=== PATIENT | male | born 1935 | race Caucasian/White ===

== ENCOUNTER → 2018-12-12 | Outpatient (CLI) | payer MEDICARE ==
[~2018-12-12] MED LIST: ASCO500 PO; ASPI325EC PO; BIOTIN PO; CALCIUM PO; COPPER PO; FISH OIL OMEGA1 EAC2 PO; FOLI400 PO; INSTAFLEX PO; MAGNESIUM PO; MOVE FREE JOIN1 EACH PO; PERSERVISION PO; Percocet 5-3251 EACH PO; RAMI5 PO; TOCO1000 PO; VITAMIN B122500 MC1 PO; ZINC15 PO
[2018-12-12 14:18] LABS: Stool Occult Bld Immuno 1 Negative (NEGATIVE); Stool Occult Bld Immuno 2 Negative (NEGATIVE)
== END | disposition home or self-care (01) ==
LOC: LAB EV 07:15
PROVIDERS: Internal Medicine Gastroenterology
DX: K57.30 Diverticulosis of large intestine without perforation or abscess without bleeding (principal); Z86.010 Personal history of colon polyps
CPT/HCPCS: 82274

== ENCOUNTER 2022-09-13 05:54 | Day surgery (SDC) | payer MEDICARE ==
[~2022-09-13] VITALS: Ht 172.7 cm; Wt 88.0 kg
--- NOTE | 2022-09-13 06:33 | NUR ---
into sds admission started npo wieght height etcetera
--- NOTE | 2022-09-13 10:34 | NUR ---
PATIENT CAME BACK FROM PACU TODAY AT 1030. POD 0 RIGHT TKA PATIENT IS A&OX4. VS ARE WNL AND IS ON RA. PATIENT DID HAVE A SPINAL DURING PROCEDURE AND STILL REPORTS NUMBNESS FROM THE HIPS DOWN AT THIS TIME. DUE TO THE SPINAL DURING PROCEDURE HE IS UNABLE TO WIGGLE TOES AT THIS TIME BUT PEDAL PULSES ARE STRONG WITH NORMAL CAP REFILL. HE HAS FLY WRAP AND GAUZE ON THE RIGHT KNEE WITH POLAR PACK IN PLACE THAT IS C/D/I. HE IS TOLERATING SMALL AMOUNTS OF PO INTAKE AT THIS TIME. PATIENT IS LAYING IN BED WITH CALL LIGHT IN REACH.
--- NOTE | 2022-09-13 17:36 | NUR ---
SHIFT SUMMARY: POD 0 RIGHT TKA PATIENT IS A&OX4. VS ARE WNL AND IS ON RA. PATIENT REPORTS A 2/10 PAIN ON HIS RIGHT KNEE AND HAS BEEN GIVEN IV TORADOL AND PO TYLENOL SO FAR AND HE STATES "IT IS BETTER". DENIES NUMBNESS OR TINGLING IN ALL EXTREMITIES AND CAN MOVE FINGERS AND TOES WHEN ASKED. HE IS A SBA WITH FWW AND GAIT BELT WITH AMBULATION. PATIENT DID WORK WITH PT ALREADY TODAY WELL. PATIENT IS SITTING IN THE RECLINER WITH FEET UP EATING DINNER. CALL LIGHT IS WITHIN REACH. CALLS APPROPRIATELY.
[2022-09-14 04:30] LABS: BASOPHILS ABSOLUTE AUTO 0.06 K/mm3 (0.00-0.23); BASOPHILS PERCENT AUTO 1 % (0-2); EOSINOPHILS ABSOLUTE AUTO 0.17 K/mm3 (0.00-0.68); EOSINOPHILS PERCENT AUTO 2 % (0-6); Hematocrit 37.4 % (37.0-53.0); Hemoglobin 12.6 g/dL (13.5-17.5); IMMATURE GRAN ABSOLUTE AUTO 0.02 K/mm3 (0.00-0.10); IMMATURE GRAN PERCENT AUTO 0 % (0-1); LYMPHOCYTES ABSOLUTE AUTO 0.73 K/mm3 (0.84-5.20); LYMPHOCYTES PERCENT AUTO 9 % (21-46); MONOCYTES ABSOLUTE AUTO 1.01 K/mm3 (0.16-1.47); MONOCYTES PERCENT AUTO 12 % (4-13); Mean Corpuscular HGB 29.6 pg (26.0-34.0); Mean Corpuscular HGB Conc 33.7 g/dL (31.5-36.5); Mean Corpuscular Volume 88 fL (80-100); Mean Platelet Volume 10.5 fL (9.1-12.4); NEUTROPHILS ABSOLUTE AUTO 6.43 K/mm3 (1.96-9.15); NEUTROPHILS PERCENT AUTO 76 % (41-73); Platelet Count 176 K/mm3 (150-400); RDW Coefficient Variation 14.5 % (11.7-14.2); RDW Standard Deviation 46.6 fL (35.1-46.3); Red Blood Cell Count 4.25 M/mm3 (4.30-5.90); White Blood Cell Count 8.42 K/mm3 (4.00-11.30)
--- NOTE | 2022-09-14 04:43 | NUR ---
SHIFT SUMMARY PT POD 0 RIGHT TOTAL KNEE, HE HAS DONE WELL OVERNIGHT, PAIN HAS BEEN MINIMAL AND WELL CONTROLLED PER EMAR. PT HAS BEEN UP AND AMBULATING AND HAS VOIDED. TOLERATING PO INTAKE. DRESSING IS INTACT TO RIGHT KNEE, HE DENIES N/T AND IS ABLE TO WIGGLE TOES. NO ACUTE CHANGES OVERNIGHT, BED IN LOWEST POSITION, CALL LIGHT WITHIN REACH.
[2022-09-14 04:54] LABS: Bun/Creatinine Ratio 24.7 (12.0-20.0); Calcium, Blood 8.5 mg/dL (8.5-10.1); Creatinine, Blood 0.89 mg/dL (0.60-1.20)
[2022-09-14] MEDS ORDERED: ASPI81CH PO (09:54)
[2022-09-14] MEDS ORDERED: OXAYDO5 M1 PO (09:55)
[2022-09-14] MEDS ORDERED: PROM25 PO (09:56)
--- NOTE | 2022-09-14 10:08 | NUR ---
DISCHARGED REVIEWED DC INSTRUCTIONS WITH PATIENT; PT DISTRACTED, EAGER TO LEAVE. VERBALIZED UNDERSTANDING. IV DC'D, CATHETER INTACT. PT DECLINED HAVING PHENERGAN PRESCRIPTION CALLED INTO PHARMACY, STATED DID NOT NEED. PROVIDED DRESSING CHANGES. PT LEFT UNIT W/POLAR PACK, DC INSTRUCTIONS, DRESSING CHANGES, AND PERSONAL POSSESSIONS IN HAND TO RIDE WAITING OUTSIDE.
== END 2022-09-14 10:06 | disposition home or self-care (01) ==
LOC: ORSCMMR 05:54 → ORD 07:30 → SURS 10:16 → ORSCMMR 09-14 10:06
PROVIDERS: Orthopaedic Surgery
PROC: 0SRC0J9 Replacement of Right Knee Joint with Synthetic Substitute, Cemented, Open Approach (ICD-10-PCS; principal; 2022-09-13 07:30)
DX: M17.11 Unilateral primary osteoarthritis, right knee (principal); I10 Essential (primary) hypertension; Z79.899 Other long term (current) drug therapy
CPT/HCPCS: 36415; 73560-RT; 80048; 83735; 85025; 97110; 97116; 97162; A9270; C1713; C1776; J0171; J0690; J0735; J1885; J2370; J2704; J2795; J3010; J3370; J7050; J7120

== ENCOUNTER 2023-03-29 11:44 | Day surgery (SDC) | payer MEDICARE ==
[~2023-03-29] VITALS: Ht 180.3 cm; Wt 86.9 kg
[~2023-03-29 11:44] MED LIST changes: +ASPI81CH PO; +OXAYDO5 M1 PO; +PROM25 PO
[2023-03-29 13:54] VITALS: BP 120/74
--- NOTE | 2023-03-29 13:55 | NUR ---
03/29/23 1355 Zonia Berrios IV REMOVED AT 1355. PT TOLERATED WELL AND WITH NO ISSUES.
== END 2023-03-29 14:05 | disposition home or self-care (01) ==
LOC: ORSCSDS 11:44
PROVIDERS: Ophthalmology
PROC: 08RJ3JZ Replacement of Right Lens with Synthetic Substitute, Percutaneous Approach (ICD-10-PCS; principal; 2023-03-29 13:00)
DX: H25.11 Age-related nuclear cataract, right eye (principal); I10 Essential (primary) hypertension; H52.201 Unspecified astigmatism, right eye; Z79.899 Other long term (current) drug therapy
CPT/HCPCS: J2250; J3010; J3301; J7040; V2632

== ENCOUNTER 2023-04-05 12:09 | Day surgery (SDC) | payer MEDICARE ==
[~2023-04-05] VITALS: Ht 180.3 cm; Wt 86.3 kg
--- NOTE | 2023-04-05 12:26 | NUR ---
04/05/23 1226 Ruthy Busch AT [address] AT 1226
[2023-04-05 13:29] VITALS: BP 118/73
--- NOTE | 2023-04-05 13:39 | NUR ---
04/05/23 1339 Tommie Verdugo IV REMOVED INTACT. SITE WNL.
== END 2023-04-05 13:37 | disposition home or self-care (01) ==
LOC: ORSCSDS 12:09
PROVIDERS: Ophthalmology
PROC: 08RK3JZ Replacement of Left Lens with Synthetic Substitute, Percutaneous Approach (ICD-10-PCS; principal; 2023-04-05 13:30)
DX: H25.12 Age-related nuclear cataract, left eye (principal); Z96.1 Presence of intraocular lens; I10 Essential (primary) hypertension; Z79.899 Other long term (current) drug therapy
CPT/HCPCS: J2250; J3010; J3301; J7040; V2632